=== PATIENT | male | born 1980 | race Caucasian/White ===

== ENCOUNTER 2017-03-11 21:45 | Emergency (ER) | payer MEDICARE, MEDICAID ==
[~2017-03-11] VITALS: Ht 185.4 cm; Wt 59.4 kg
[2017-03-11] MEDS ORDERED: NKM (22:21)
[2017-03-11] MEDS ORDERED: IBUPROFEN600 MG ORAL (22:33)
--- NOTE | 2017-03-11 22:34 | Emergency Room Report ---
History of Present Illness General Chief Complaint: Skin Rash/Abscess Source: Patient Present Illness HPI Is a 36-year-old male with a history of HIV/AIDS. She is on any medication. He presents with chief complaint of pain to his back. Onset for last 4 days. No trauma. No fever chills but no nausea no vomiting. Denies any other complaint. Pain is 9/10. Worse with movement. Allergies: Coded Allergies: CODEINE (Verified Allergy, Unknown, 03/11/17) Patient History Past Medical History: see triage record, old chart reviewed, HIV Past Surgical History: other Pertinent Family History: none Social History: Reports: smoking Immunizations: other Reviewed Nursing Documentation: PMH: Agreed, PSxH: Agreed Nursing Documentation-PMH Hx Asthma: Yes Review of Systems Eye: Denies: eye pain, blurred vision ENT: Denies: ear pain, nose congestion, throat swelling Respiratory: Denies: cough, shortness of breath Cardiovascular: Denies: chest pain, palpitations Gastrointestinal: Denies: abdominal pain, diarrhea, nausea, vomiting Musculoskeletal: Reports: back pain, Denies: joint pain Skin: Denies: rash Neurological: Denies: headache, numbness Endocrine: Denies: increased thirst, increased urine Hematologic/Lymphatic: Denies: easy bruising All Other Systems: negative except mentioned in HPI Physical Exam Vital Signs Date Time Temp Pulse Resp B/P (MAP) Pulse Ox O2 Delivery O2 Flow Rate FiO2 03/11/17 22:16 98.4 98 18 142/81 98 Room Air vitals normal Sp02 EP Interpretation: reviewed, normal General Appearance: well appearing, no apparent distress, alert, other - Patient is resting comfortably Head: normocephalic, atraumatic Eyes: bilateral eye PERRL, bilateral eye EOMI ENT: hearing grossly normal, normal pharynx Neck: full range of motion, supple, no meningismus Respiratory: chest non-tender, lungs clear, normal breath sounds Cardiovascular #1: regular rate, rhythm, no murmur Gastrointestinal: normal bowel sounds, non tender, no mass, no organomegaly, no bruit, non-distended Musculoskeletal: back normal, normal range of motion, other - He has a healing ecchymosis to the lower thoracic area laterally on the right side. No crepitance. Also has a small abrasion over that area. Patient has AKA Neurologic: alert, oriented x3 Psychiatric: mood/affect normal Skin: warm/dry Medical Decision Making Diagnostic Impression: Primary Impression: Contusion of back wall of thorax Qualified Codes: S20.221A - Contusion of right back wall of thorax, initial encounter ER Course Patient with a contusion over that area. His leg on it comfortably. I see no distress. No crepitance. No evidence of abscess or infection. He has his wheelchair with him. He has a technical documentation specialist it from [facility]. It was from today. He claimed that he went there and they told to come here instead. This does not make sense. I suspect there was some trauma that he's not telling me. Based on exam I see no evidence of rib fracture. Last Vital Signs Date Time Temp Pulse Resp B/P (MAP) Pulse Ox O2 Delivery O2 Flow Rate FiO2 03/11/17 22:16 98.4 98 18 142/81 98 Room Air Status: improved Disposition: HOME, SELF-CARE Condition: Stable Scripts Ibuprofen* (MOTRIN*) 600 Mg Tablet 600 MG ORAL Q8H Y for For Pain, #30 TAB 0 Refills Prov: ART ADAME M.D. 03/11/17 Additional Instructions: Followup with your DrFidencio in 7 days. Return if symptom worsen. ART ADAME M.D. Mar 11, 2017 22:34
[2017-03-11 22:44] VITALS: BP 142/81
[2017-03-11 22:48] VITALS: BP 140/81
== END 2017-03-11 22:45 | disposition home or self-care (01) ==
LOC: EMR 22:30
DX: S20.221A Contusion of right back wall of thorax, initial encounter (principal); X58.XXXA Exposure to other specified factors, initial encounter; Y93.9 Activity, unspecified; Y92.9 Unspecified place or not applicable; Z88.6 Allergy status to analgesic agent; F17.200 Nicotine dependence, unspecified, uncomplicated; Z89.619 Acquired absence of unspecified leg above knee
CPT/HCPCS: 99283